=== PATIENT | female | born 1975 | race American Indian/Alaskan Native ===

== ENCOUNTER 2021-01-22 08:04 | Emergency (ER) | payer SELFPAY ==
[2021-01-22] MEDS ORDERED: ASPIRIN 325 MG TAB PO ONE (08:30)
[2021-01-22 08:32] VITALS: BP 169/102
[2021-01-22 08:59] LABS: Basophils # (Auto) 0.1 K/mm3 (0.0-0.1); Basophils % (Auto) 1.2 % (0.0-1.8); Eosinophils # (Auto) 0.1 K/mm3 (0.0-0.4); Eosinophils % (Auto) 1.4 % (0.0-4.3); Hematocrit 28.3 % (30.3-42.9); Hemoglobin 9.1 gm/dl (10.1-14.3); Lymphocytes # (Auto) 1.3 K/mm3 (1.2-5.4); Lymphocytes % (Auto) 19.8 % (13.4-35.0); Mean Corpuscular HGB Conc 32 % (30-34); Mean Corpuscular Volume 73 fl (79-97); Monocytes # (Auto) 0.6 K/mm3 (0.0-0.8); Monocytes % (Auto) 8.2 % (0.0-7.3); Platelet Count 405 K/mm3 (140-440); Red Blood Count 3.87 M/mm3 (3.65-5.03); Red Cell Distribution Width 16.8 % (13.2-15.2)
--- NOTE | 2021-01-22 09:07 | XRay Report ---
CHEST 2 VIEWS INDICATION / CLINICAL INFORMATION: SOB. COMPARISON: None available. FINDINGS: SUPPORT DEVICES: None. HEART / MEDIASTINUM: No significant abnormality. LUNGS / PLEURA: No significant pulmonary or pleural abnormality. No pneumothorax. ADDITIONAL FINDINGS: No significant additional findings. IMPRESSION: 1. No acute findings. Signer Name: Stephanie Chen MD Signed: 01/22/2021 9:03 AM Workstation Name: [id number]
[2021-01-22 09:25] LABS: Alanine Aminotransferase 6 units/L (7-56); Albumin 4.3 g/dL (3.9-5); BUN/Creatinine Ratio 15; Blood Urea Nitrogen 12 mg/dL (7-17); Hemolysis Index 6
--- NOTE | 2021-01-22 12:15 | Emergency Department Report ---
ED General Adult HPI - General Chief complaint: Weakness Stated complaint: LOW IRON, FATIGUE Time Seen by Provider: 01/22/21 11:23 Source: patient Mode of arrival: Ambulatory Limitations: No Limitations - History of Present Illness Initial comments: 45-year-old -[place] female patient presents with complaints of fatigue for the past 2 to 3 weeks. She states she has a history of iron deficiency anemia and normally receives iron transfusions. Patient states she believes she is low in iron and has had history of blood transfusions due to her anemia. She denies any heavy vaginal bleeding, abnormal bruising, chest pain, shortness of breath, headache, abdominal pain, or fever/chills/sweats. She states she recently developed pica and is chewing a great deal of ice. She reports she just wants to make sure her hemoglobin is not too low. Severity scale (0 -10): 5 - Related Data Allergies Allergy/AdvReac Type Severity Reaction Status Date / Time No Known Allergies Allergy Unverified 01/22/21 08:16 ED Review of Systems ROS: Stated complaint: LOW IRON, FATIGUE Other details as noted in HPI Constitutional: malaise. denies: chills, diaphoresis, fever, weakness Respiratory: denies: cough, shortness of breath Cardiovascular: denies: chest pain Endocrine: denies: excessive sweating Gastrointestinal: denies: abdominal pain, nausea, vomiting Genitourinary: denies: urgency, dysuria, frequency, hematuria Neurological: denies: headache Hematological/Lymphatic: denies: swollen glands ED Past Medical Hx - Past Medical History Previous Medical History?: Yes Additional medical history: anemia, Vaginal delivery x 3 - Surgical History Past Surgical History?: Yes Additional Surgical History: Uterine ablation, Gastric bypass 2014 - Social History Smoking Status: Never Smoker Substance Use Type: Alcohol ED Physical Exam - General Limitations: No Limitations General appearance: alert, in no apparent distress, obese - Head Head exam: Present: atraumatic, normocephalic - Eye Eye exam: Present: normal appearance. Absent: scleral icterus - Respiratory Respiratory exam: Present: normal lung sounds bilaterally. Absent: respiratory distress - Cardiovascular Cardiovascular Exam: Present: regular rate, normal rhythm - GI/Abdominal GI/Abdominal exam: Present: soft. Absent: tenderness - Neurological Exam Neurological exam: Present: alert, oriented X3, CN II-XII intact, normal gait. Absent: motor sensory deficit - Psychiatric Psychiatric exam: Present: normal affect, normal mood - Skin Skin exam: Present: warm, dry, intact, normal color. Absent: rash, cyanosis, diaphoretic, petechiae, pallor, ecchymosis ED Course Vital Signs 01/22/21 01/22/21 01/22/21 08:18 08:22 08:32 Temperature 99.2 F 99.2 F 99.2 F Pulse Rate 81 76 Respiratory 18 18 20 Rate Blood Pressure 187/113 Blood Pressure 187/113 169/102 [Right] O2 Sat by Pulse 98 97 Oximetry ED Medical Decision Making - Lab Data Result diagrams: 01/22/21 08:37 01/22/21 08:37 Lab Results 01/22/21 01/22/21 Range/Units 08:37 08:37 WBC 6.8 (4.5-11.0) K/mm3 RBC 3.87 (3.65-5.03) M/mm3 Hgb 9.1 L (10.1-14.3) gm/dl Hct 28.3 L (30.3-42.9) % MCV 73 L (79-97) fl MCH 24 L (28-32) pg MCHC 32 (30-34) % RDW 16.8 H (13.2-15.2) % Plt Count 405 (140-440) K/mm3 Lymph % (Auto) 19.8 (13.4-35.0) % [place]verse % (Auto) 8.2 H (0.0-7.3) % Eos % (Auto) 1.4 (0.0-4.3) % Baso % (Auto) 1.2 (0.0-1.8) % Lymph # (Auto) 1.3 (1.2-5.4) K/mm3 [place]verse # (Auto) 0.6 (0.0-0.8) K/mm3 Eos # (Auto) 0.1 (0.0-0.4) K/mm3 Baso # (Auto) 0.1 (0.0-0.1) K/mm3 Seg Neutrophils % 69.4 (40.0-70.0) % Seg Neutrophils # 4.7 (1.8-7.7) K/mm3 Sodium 141 (137-145) mmol/L Potassium 3.5 L (3.6-5.0) mmol/L Chloride 106.8 (98-107) mmol/L Carbon Dioxide 22 (22-30) mmol/L Anion Gap 16 mmol/L BUN 12 (7-17) mg/dL Creatinine 0.8 (0.6-1.2) mg/dL Estimated GFR > 60 ml/min BUN/Creatinine Ratio 15 % Glucose 85 (65-100) mg/dL Calcium 9.0 (8.4-10.2) mg/dL Total Bilirubin 0.20 (0.1-1.2) mg/dL AST 13 (5-40) units/L ALT 6 L (7-56) units/L Alkaline Phosphatase 62 (35-129) units/L Troponin T < 0.010 (0.00-0.029) ng/mL Total Protein 6.7 (6.3-8.2) g/dL Albumin 4.3 (3.9-5) g/dL Albumin/Globulin Ratio 1.8 % - Medical Decision Making 45-year-old -[place] female patient presents with complaints of fatigue for the past 2 to 3 weeks. She states she has a history of iron deficiency anemia and normally receives iron transfusions. Patient states she believes she is low in iron and has had history of blood transfusions due to her anemia. She denies any heavy vaginal bleeding, abnormal bruising, chest pain, shortness of breath, headache, abdominal pain, or fever/chills/sweats. She states she recently developed pica and is chewing a great deal of ice. She reports she just wants to make sure her hemoglobin is not too low. Hemoglobin noted to be 9.1. She denies chest pain, shortness of breath, or headache. Physical exam is normal. No abnormal bleeding per patient. Blood pressure noted to be elevated-patient states a history of hypertension a few years ago, however she was taking off her blood pressure medication after she had a uterine ablation. She states her blood pressure was last checked in August of this year and was normal. Recommend patient follows up with primary care for blood pressure recheck within 2 to 3 days. She is neurologically intact denies any headache or dizziness. Patient is stable for discharge home. Strict return precautions were discussed in detail with patient who verbalizes understanding. Critical care attestation.: If time is entered above; I have spent that time in minutes in the direct care of this critically ill patient, excluding procedure time. ED Disposition Clinical Impression: Fatigue Disposition: DC-01 TO HOME OR SELFCARE Is pt being admited?: No Condition: Stable Instructions: Fatigue, [place]strike Hemolysis Referrals: [facility] [Provider Group] - 3-5 Days YESIKA MAJOR MD [Staff Physician] - 3-5 Days CHARBEL VASQUEZ MD [Referring] - 3-5 Days
== END 2021-01-22 12:39 | disposition home or self-care (01) ==
LOC: ED 08:04
DX: R53.83 Other fatigue (principal)
CPT/HCPCS: 36415; 71046; 80053; 84484; 85025; 99283

== ENCOUNTER 2021-05-22 13:24 | Emergency (ER) | payer OTHER ==
--- NOTE | 2021-05-22 13:39 | Emergency Department Report ---
HPI - General Chief Complaint: Medical Clearance Time Seen by Provider: 05/22/21 13:29 - HPI HPI: Room 18 The patient is a 45-year-old female present with a chief complaint of fatigue. Patient states she has a history of chronic anemia attributed to her previous gastric bypass. Patient states for the past 3 weeks she is experienced fatigue which she has had in the past due to her anemia. Patient states over the past few days fatigue has worsened. Patient states she is developed increased pica consuming ice. Patient states she developed dyspnea on exertion over the past 2 to 3 days. Patient denies chest pain, bright red blood per rectum or melena. Patient denies history of fever. Patient states she has been vaccinated against Covid. [place] and states she does not currently have a primary physician ED Past Medical Hx - Past Medical History Previous Medical History?: No Additional medical history: anemia, Vaginal delivery x 3 - Surgical History Additional Surgical History: Uterine ablation, Gastric bypass 2014, right lumpectomy (benign) - Family History Family history: no significant - Social History Smoking Status: Former Smoker (None x14 years) Substance Use Type: None (Denies illicit drug use), Alcohol (Occasional) ED Review of Systems ROS: Stated complaint: ANEMIA Other details as noted in HPI Constitutional: malaise Eyes: denies: eye pain ENT: denies: throat pain Respiratory: SOB with exertion Cardiovascular: denies: chest pain Endocrine: no symptoms reported Gastrointestinal: denies: melena, hematochezia Genitourinary: denies: abnormal menses Musculoskeletal: denies: back pain Neurological: denies: headache Physical Exam - Physical Exam Physical Exam: GENERAL: The patient is well-developed well-nourished female sitting on stretcher not appearing to be in acute. [] HEENT: Normocephalic. Atraumatic. Extraocular motions are intact. Patient has moist mucous membranes. NECK: Supple. Trachea midline CHEST/LUNGS: Clear to auscultation. There is no respiratory distress noted. HEART/CARDIOVASCULAR: Regular. There is no tachycardia. There is no gallop rub or murmur. ABDOMEN: Abdomen is soft, nontender. Patient has normal bowel sounds. There is no abdominal distention. SKIN: There is no rash. There is trace pedal edema bilaterally. There is no diaphoresis. NEURO: The patient is awake, alert, and oriented. The patient is cooperative. The patient has no focal neurologic deficits. The patient has normal speech. GCS 15 MUSCULOSKELETAL: There is no evidence of acute injury. ED Medical Decision Making - Lab Data Result diagrams: 05/22/21 13:42 Laboratory Tests 05/22/21 05/22/21 13:42 13:42 WBC 7.4 RBC 3.94 Hgb 6.0 L Hct 22.7 L MCV 58 L MCH 15 L MCHC 27 L RDW 19.4 H Plt Count 373 Lymph % (Auto) 28.3 Ray % (Auto) 10.2 H Eos % (Auto) 1.9 Baso % (Auto) 1.8 Lymph # (Auto) 2.1 Ray # (Auto) 0.8 Eos # (Auto) 0.1 Baso # (Auto) 0.1 Seg Neutrophils % 57.8 Seg Neutrophils # 4.3 Sodium 139 Potassium 3.7 Chloride 107.0 Carbon Dioxide 19 L Anion Gap 17 BUN 13 Creatinine 0.8 Estimated GFR > 60 BUN/Creatinine Ratio 16 Glucose 95 Calcium 8.2 L Total Bilirubin 0.20 AST 11 ALT 7 Alkaline Phosphatase 62 NT-Pro-B Natriuret Pep 325.8 Total Protein 7.0 Albumin 4.0 Albumin/Globulin Ratio 1.3 - Differential Diagnosis Symptomatic anemia, hypothyroidism, electrolyte abnormality, CHF Critical care attestation.: If time is entered above; I have spent that time in minutes in the direct care of this critically ill patient, excluding procedure time. ED Disposition Clinical Impression: Symptomatic anemia Disposition: ADMITTED INPATIENT Is pt being admited?: Yes Does the pt Need Aspirin: No Condition: Fair Time of Disposition: 15:04 (Hospitalist notified (Dr. Liang))
[2021-05-22 14:39] LABS: Basophils # (Auto) 0.1 K/mm3 (0.0-0.1); Basophils % (Auto) 1.8 % (0.0-1.8); Eosinophils # (Auto) 0.1 K/mm3 (0.0-0.4); Eosinophils % (Auto) 1.9 % (0.0-4.3); Lymphocytes # (Auto) 2.1 K/mm3 (1.2-5.4); Lymphocytes % (Auto) 28.3 % (13.4-35.0); Mean Corpuscular HGB Conc 27 % (30-34); Monocytes # (Auto) 0.8 K/mm3 (0.0-0.8); Monocytes % (Auto) 10.2 % (0.0-7.3); Platelet Count 373 K/mm3 (140-440); Red Blood Count 3.94 M/mm3 (3.65-5.03); Red Cell Distribution Width 19.4 % (13.2-15.2)
[2021-05-22 14:41] LABS: Hematocrit 22.7 % (30.3-42.9); Mean Corpuscular Volume 58 fl (79-97)
[2021-05-22] MEDS ORDERED: SODIUM CHLORIDE 0.9% 500 ML 500 ML IV ONE (14:48)
[2021-05-22 14:55] LABS: Alanine Aminotransferase 7 units/L (7-56); BUN/Creatinine Ratio 16; Blood Urea Nitrogen 13 mg/dL (7-17); Calcium 8.2 mg/dL (8.4-10.2); Hemolysis Index 0
[2021-05-22 15:06] LABS: Free T4 (Free Thyroxine) 1.1 ng/dL (0.76-1.46)
--- NOTE | 2021-05-22 15:23 | Event Note ---
Date: 05/22/21 45 YO Female with Obesity, Anemia S/P Gastric Bypass, Medication Noncompliance presents ED for evaluation. Patient seen and evaluated in the emergency department all lab and imaging studies reviewed. Patient found to have a hemoglobin of 6 with concomitant generalized weakness. Patient acknowledges medication noncompliance for the past 6 months. Patient lost outpatient medical follow-up. Patient seen and evaluated in the emergency department. Patient found to have no significant physical exam findings. Patient transfused with 1 unit packed red cells in the emergency department. Patient counseled and informed that she will require folic acid, vitamin B12, and iron therapy for life, as well as routine blood monitoring for anemia. Patient medically optimized and does not meet admission criteria at this time. Patient instructed to follow-up with primary care physician for routine CBC monitoring as well as age-appropriate risk factor related screening test, and to follow-up with [facility] for routine follow-up evaluation. Advanced care planning conducted in ED. Disease education conducted, care plan discussed, prognosis discussed. Patient counseled regarding medication noncompliance and primary care physician follow-up. GENERAL: The patient is well-developed well-nourished female sitting on stretcher not appearing to be in acute. HEENT: Normocephalic. Atraumatic. Extraocular motions are intact. Patient has moist mucous membranes. NECK: Supple. Trachea midline CHEST/LUNGS: Clear to auscultation. There is no respiratory distress noted. HEART/CARDIOVASCULAR: Regular. No murmurs rubs or gallops. No accessory heart sounds. There is no tachycardia. There is no gallop rub or murmur. ABDOMEN: Abdomen is soft, nontender. Patient has normal bowel sounds. There is no abdominal distention. SKIN: There is no rash. Warm, dry, intact. . There is no diaphoresis. NEURO: The patient is awake, alert, and oriented. The patient is cooperative. The patient has no focal neurologic deficits. The patient has normal speech. GCS 15 MUSCULOSKELETAL: There is no evidence of acute injury.
[2021-05-22 18:18] VITALS: BP 173/95
== END 2021-05-22 18:27 | disposition admitted as inpatient to this hospital (09) ==
LOC: ED 13:24
DX: D64.89 Other specified anemias (principal)
CPT/HCPCS: 36415; 36430; 80053; 83880; 84439; 84443; 85025; 86850; 86900; 86901; 86920; 99283; J7040; P9016